=== PATIENT | female | born 1965 ===

== ENCOUNTER 2017-01-27 16:03 | Observation (INO) | payer OTHER ==
[2017-01-27] MEDS ORDERED: ALBUTEROL NEBULIZED 2.5 MG/3 ML INHALATION STA ×2 (16:07→18:12)
[2017-01-27] MEDS ORDERED: MAGNESIUM SULFATE-D5W PMX 1 GM in DEXTROSE/WATER 1 100ML.BAG IVPB STA (16:07)
[2017-01-27] MEDS ORDERED: DEXAMETHASONE SOD PHOSPHATE 10 MG/ML 1 ML VIAL IV STA (16:07)
[2017-01-27 17:23] LABS: Basophils % (A) 1 %; CH 28.7; CHCM 33.4; Eosinophils # (A) 0.2 k/uL (0-0.7); Eosinophils % (A) 3 %; HCT 39.1 % (34.0-46.0); HDW 2.34; HGB 13.1 gm/dL (11.4-16.0); Luc # (Auto) 0.12; Luc % (Auto) 2; Lymphocytes # (A) 2.1 k/uL (1.0-4.8); Lymphocytes % (A) 33 %; MCH 28.9 pg (25.0-35.0); MCHC 33.4 g/dL (31.0-37.0); MCV 86.3 fL (80.0-100.0); Mean Platelet Volume 7.4; Monocytes # (A) 0.5 k/uL (0-1.0); Monocytes % (A) 7 %; Neutrophils # (A) 3.5 k/uL (1.3-7.7); Neutrophils % (A) 54 %; RBC 4.54 m/uL (3.80-5.40); RDW 13.7 % (11.5-15.5); WBC 6.5 k/uL (3.8-10.6); WBC (Perox) 6.38
[2017-01-27 17:35] LABS: ALT 43 U/L (9-52); AST 21 U/L (14-36); Alkaline Phosphatase 93 U/L (38-126); Anion Gap 10 mmol/L; Blood Urea Nitrogen 15 mg/dL (7-17); Calcium 9.4 mg/dL (8.4-10.2); Carbon Dioxide 25 mmol/L (22-30); Chloride 106 mmol/L (98-107); Glucose 97 mg/dL (74-99); Non-African American GFR(MDRD) >60 (>60 ml/min/1.73 sqM); Potassium 3.6 mmol/L (3.5-5.1); Sodium 141 mmol/L (137-145); Total Bilirubin 0.2 mg/dL (0.2-1.3); Total Protein 6.6 g/dL (6.3-8.2)
--- NOTE | 2017-01-27 18:01 | XR ---
Exam: FILM CXR 01/27/17 at 1748 hrs. Single frontal view chest INDICATION: Difficulty breathing COMPARISON: None FINDINGS: Low lung volumes are noted. Heart size appears enlarged.. Tortuosity of the descending aorta noted. Prominence of the right hilum may be related to crowding of the pulmonary vessels. Possibility of enlarged right hilar nodes are not excluded entirely. No focal consolidation in the lungs. No effusion or pneumothorax. Elevated right hemidiaphragm noted. There is tortuosity of the descending aorta. Bony elements are within normal limits for age. No acute osseous abnormality. IMPRESSION: Low lung volumes. No focal consolidation in the lungs. No pneumothorax or effusion. Cardiac size appears enlarged which may be accentuated due to low lung volume status. No evidence for congestive heart failure. Some prominence of the right ángel may also be related to crowding of the pulmonary vessels due to low lung volumes however possibility of a prominent right infrahilar nodes is not entirely excluded. Tortuosity of the descending aorta. There is mild elevation of the right hemidiaphragm.
--- NOTE | 2017-01-27 19:19 | ED ---
General Adult HPI - General Chief complaint: Shortness of Breath Stated complaint: KEELEY Time Seen by Provider: 01/27/17 16:07 Source: patient, family, RN notes reviewed Mode of arrival: EMS Limitations: physical limitation - History of Present Illness Initial comments: 51-year-old female presenting with two-day history of dysuria. Patient was sent from her primary care's addition by ambulance for significant respiratory distress. Patient has known history of asthma. She's been taking her albuterol at home without relief. She complains of cough which is nonproductive. Denies fever. Denies chest pain. History is somewhat limited secondary to language barrier. Denies nausea vomiting or diarrhea. - Related Data Home Medications Medication Instructions Recorded Confirmed Albuterol Inhaler [Ventolin Hfa 2 puff INHALATION RT-Q4H PRN 01/27/17 01/27/17 Inhaler] Beclomethasone Dipropionate [Qvar 1 puff INHALATION RT-BID 01/27/17 01/27/17 80 mcg] Allergies Allergy/AdvReac Type Severity Reaction Status Date / Time hydromorphone Allergy Rash/Hives Verified 01/27/17 17:45 NSAIDS (Non-Steroidal Allergy Rash/Hives Verified 01/27/17 17:44 Anti-Inflamma Review of Systems ROS Statement: Those systems with pertinent positive or pertinent negative responses have been documented in the HPI. ROS Other: All systems not noted in ROS Statement are negative. Past Medical History Past Medical History: Asthma Additional Past Medical History / Comment(s): henia, prolapsed uterus, kidney stones History of Any Multi-Drug Resistant Organisms: None Reported Past Surgical History: Cholecystectomy Additional Past Surgical History / Comment(s): kidney stone removal Past Psychological History: No Psychological Hx Reported Smoking Status: Never smoker Past Alcohol Use History: None Reported Past Drug Use History: None Reported General Exam Limitations: physical limitation General appearance: alert Head exam: Present: atraumatic, normocephalic Eye exam: Present: normal appearance, PERRL ENT exam: Present: mucous membranes moist Respiratory exam: Present: wheezes, accessory muscle use, decreased breath sounds Cardiovascular Exam: Present: regular rate, normal rhythm GI/Abdominal exam: Present: soft. Absent: distended, tenderness Extremities exam: Present: pedal edema. Absent: calf tenderness Neurological exam: Present: alert, oriented X3. Absent: motor sensory deficit Psychiatric exam: Present: normal affect, normal mood Skin exam: Present: warm, dry. Absent: cyanosis, diaphoretic Course Vital Signs 01/27/17 01/27/17 01/27/17 16:08 17:16 18:16 Pulse Rate 83 92 Respiratory 26 H Rate Blood Pressure 138/97 O2 Sat by Pulse 97 99 Oximetry 01/27/17 18:32 Pulse Rate 91 Respiratory Rate Blood Pressure O2 Sat by Pulse Oximetry - Reevaluation(s) Reevaluation #1: 01/27/17 19:16 Patient is given steroids, albuterol, Atrovent, and magnesium sulfate. On reevaluation she is feeling better. Still is in moderate respiratory distress. EKG Findings - EKG Comments: EKG Findings:: EKG shows normal sinus rhythm with a ventricular rate of 81, WI interval 162, QRS duration 90, QTC is 455, there is no ST segment elevation or depression, no T-wave abnormalities. Medical Decision Making - Medical Decision Making 51-year-old female with past medical history of asthma presenting with cough and difficult to breathing. Patient is in moderate respiratory distress, tachypnea, minimal air entry with an extremely wheeze using accessory muscles. She was given 5 mg of albuterol and 1 mg of Atrovent prior to arrival. She is given additional 5 mg of albuterol, Decadron, magnesium sulfate in the emergency department. Reevaluation she appears more comfortable but is still in moderate respiratory distress. Chest x-ray shows no defined is, no infiltrate, no pneumothorax, no pulmonary edema. EKG is unremarkable. Patient will be admitted for continued steroids, and nebulized albuterol. Case was discussed with the patient's primary care physician who would like pulmonology to be consulted. - Lab Data Result diagrams: 01/27/17 17:13 01/27/17 17:13 Lab Results 01/27/17 01/27/17 01/27/17 Range/Units 17:13 17:13 17:13 WBC 6.5 (3.8-10.6) k/uL RBC 4.54 (3.80-5.40) m/uL Hgb 13.1 (11.4-16.0) gm/dL Hct 39.1 (34.0-46.0) % MCV 86.3 (80.0-100.0) fL MCH 28.9 (25.0-35.0) pg MCHC 33.4 (31.0-37.0) g/dL RDW 13.7 (11.5-15.5) % Plt Count 305 (150-450) k/uL Neutrophils % 54 % Lymphocytes % 33 % Monocytes % 7 % Eosinophils % 3 % Basophils % 1 % Neutrophils # 3.5 (1.3-7.7) k/uL Lymphocytes # 2.1 (1.0-4.8) k/uL Monocytes # 0.5 (0-1.0) k/uL Eosinophils # 0.2 (0-0.7) k/uL Basophils # 0.0 (0-0.2) k/uL D-Dimer 0.31 (<0.60) mg/L FEU Sodium 141 (137-145) mmol/L Potassium 3.6 (3.5-5.1) mmol/L Chloride 106 (98-107) mmol/L Carbon Dioxide 25 (22-30) mmol/L Anion Gap 10 mmol/L BUN 15 (7-17) mg/dL Creatinine 0.70 (0.52-1.04) mg/dL Est GFR (MDRD) Af Amer >60 (>60 ml/min/1.73 sqM) Est GFR (MDRD) Non-Af >60 (>60 ml/min/1.73 sqM) Glucose 97 (74-99) mg/dL Calcium 9.4 (8.4-10.2) mg/dL Total Bilirubin 0.2 (0.2-1.3) mg/dL AST 21 (14-36) U/L ALT 43 (9-52) U/L Alkaline Phosphatase 93 (38-126) U/L Total Protein 6.6 (6.3-8.2) g/dL Albumin 4.0 (3.5-5.0) g/dL Disposition Clinical Impression: Asthma with status asthmaticus Disposition: ADMITTED IP TO THIS [facility] Condition: Stable Referrals: Bruce Wilhelm MD [Primary Care Provider] - 1-2 days Decision to Admit Reason: Admit from EC Decision Date: 01/27/17 Decision Time: 19:18
[2017-01-27] MEDS: ACETAMINOPHEN TAB 325 MG TAB PO PRN (23:36)
[2017-01-28] MEDS: IPRATROPIUM-ALBUTEROL 3 ML NEB INHALATION PRN ×3 (00:06→11:24)
[2017-01-28] MEDS: ACETAMINOPHEN TAB 325 MG TAB PO PRN (06:08)
[2017-01-28] MEDS ORDERED: predniSONE 20 MG TAB PO SCH (09:00)
[2017-01-28] MEDS: methylPREDNISolone SOD SUCCI 125 MG/2 ML VIAL IV SCH ×3 (12:00→23:57)
[2017-01-28] MEDS ORDERED: Potassium Replacement Protocol 1 EACH MISC MISCELLANE PRN (13:00)
--- NOTE | 2017-01-28 13:48 | P.HPIM ---
History of Present Illness H&P Date: 01/28/17 Chief Complaint: Shortness of breath This is a 51-year-old female with past medical history significant for asthma or childhood that was sent from my office yesterday to the emergency room for further evaluation of acute asthma exacerbation. Patient has been having problems with difficulty breathing and wheezing for the past couple of weeks. Her problem got significantly worse within the past 2 days. When she presented to my office yesterday she was having audible wheezing across a room. She was having cough that is generally nonproductive and occasionally productive of yellowish sputum. She was sent to the emergency room where she was evaluated and treated with bronchodilators and IV steroids. Chest x-ray showed no acute findings. Patient is currently admitted to the hospital. She is also complaining of abdominal pain in the area of the chronic ventral hernia. Review of Systems Review of system: 14 points review of systems were obtained and were negative except to what were mentioned in the HPI. Past Medical History Past Medical History: Asthma Additional Past Medical History / Comment(s): hernia, prolapsed uterus, kidney stones History of Any Multi-Drug Resistant Organisms: None Reported Past Surgical History: Cholecystectomy Additional Past Surgical History / Comment(s): kidney stone removal Past Anesthesia/Blood Transfusion Reactions: Motion Sickness, Postoperative Nausea & Vomiting (PONV) Past Psychological History: No Psychological Hx Reported Smoking Status: Never smoker Past Alcohol Use History: None Reported Past Drug Use History: None Reported - Past Family History Mother Family Medical History: Asthma, Diabetes Mellitus Father Family Medical History: No Reported History, Unable to Obtain Medications and Allergies Home Medications Medication Instructions Recorded Confirmed Type Albuterol Inhaler [Ventolin Hfa 2 puff INHALATION RT-Q4H PRN 01/27/17 01/27/17 History Inhaler] Beclomethasone Dipropionate [Qvar 1 puff INHALATION RT-BID 01/27/17 01/27/17 History 80 mcg] Allergies Allergy/AdvReac Type Severity Reaction Status Date / Time hydromorphone Allergy Rash/Hives Verified 01/27/17 17:45 NSAIDS (Non-Steroidal Allergy Rash/Hives Verified 01/27/17 17:44 Anti-Inflamma Physical Exam Vitals: Vital Signs Temp Pulse Pulse Resp BP BP Pulse Ox 01/28/17 11:35 92 01/28/17 11:25 98 01/28/17 07:10 96 07/11/17 07:00 96.7 F L 94 18 134/85 96 01/28/17 06:57 100 97 01/28/17 00:17 94 01/28/17 00:06 100 01/27/17 23:00 97.5 F L 109 H 16 126/79 96 01/27/17 20:25 97.0 F L 99 16 139/74 93 L 01/27/17 20:22 98.0 F 87 15 164/93 96 01/27/17 19:00 88 20 132/78 99 01/27/17 18:32 91 01/27/17 18:16 92 01/27/17 18:00 85 20 158/70 96 01/27/17 17:16 99 01/27/17 16:08 83 26 H 138/97 97 Intake and Output 01/27/17 01/28/17 01/28/17 22:59 06:59 14:59 Output Total 313 700 Balance -313 -700 Output: Urine 700 Post Void Residual 313 Other: Voiding Method Toilet Toilet Bedside Commode Bedside Commode Bedpan Bedpan # Voids 2 Weight 90.718 kg General: The patient is awake and alert, in no distress Eye: there is normal conjunctiva bilaterally. Neck: The neck is supple, there is no JVD. Cardiovascular: Normal S1-S2, no S3-S4, no murmurs. Respiratory: Lungs are diminished bilaterally with mild end expiratory wheezing Gastrointestinal: Abdomen is soft, nontender. There is a small ventral hernia in the umbilical area that is reducible but slightly tender to palpation. Musculoskeletal: There is no pedal edema. Neurological:. Speech is normal. Skin: Skin is warm and dry Results CBC & Chem 7: 01/27/17 17:13 01/27/17 17:13 Thrombosis Risk Factor Assmnt - Choose All That Apply Each Factor Represents 1 point: Age 41-60 years, Obesity (BMI >25) Thrombosis Risk Factor Assessment Total Risk Factor Score: 2 Thrombosis Risk Factor Assessment Level: Low Risk Assessment and Plan Plan: 1. Acute asthma exacerbation 2. Acute bacterial bronchitis with no evidence of pneumonia on chest x-ray 3. Reducible chronic ventral hernia causing some pain 4. Chronic uterine prolapse 5. DVT prophylaxis with subcu heparin Today, I reviewed her medication to send lab work resolved. Continue bronchodilators around the clock. Continue IV steroids. Inhaled steroids and oral azithromycin added by pulmonology, appreciate recommendations. Wean off O2 as tolerated for O2 sats above 90%. Continue supportive care otherwise. Awaiting general surgery evaluation. Repeat lab work in the morning.
[2017-01-28] MEDS: IPRATROPIUM-ALBUTEROL 3 ML NEB INHALATION SCH ×3 (15:36→23:42)
[2017-01-28] MEDS ORDERED: ZOLPIDEM 5 MG TAB PO PRN (16:14)
--- NOTE | 2017-01-28 16:40 | CONS ---
51 year old female with history of asthma. She presents with a couple of days of increasing shortness of breath, coughing, wheezing, chest congestion. Not a particularly good historian. The patient has history of longstanding asthma that has been present for at least five to ten years. Apparently it is worse than it has ever been. She did not see a lung doctor. She denies any fever. No chest pain. Not coughing up much or any phlegm. She does have significant language barrier. No nausea, vomiting or diarrhea. She was admitted with a diagnosis of asthma exacerbation. She has a prior history of pneumonia in the past. Home medications include: 1. Albuterol inhaler. 2. Q-Torito inhaler. ALLERGIES: HYDROMORPHONE. SHE ALSO HAS ALLERGIES TO ANTIINFLAMMATORY DRUG SUCH NONSTEROIDAL ANTIINFLAMMATORY DRUGS. Past medical history includes asthma. She also has a history of abdominal hernia as well as a prolapsed uterus. She has a history of kidney stones and previous episode of pneumonia. In addition to ( ) she has had a previous cholecystectomy. Social history is negative for tobacco or alcohol use. No illicit drug use. Family history is positive for a niece with asthma. We actually see the niece in our office. She also has severe asthma. The rest of the history is not too remarkable. REVIEW OF SYSTEMS: Constitutional: Negative. Neurological negative. HEENT: Negative. Cardiovascular negative. Cardiopulmonary: Shortness of breath, chest tightness. Cough and chest congestion. Minimal phlegm production. GI/ negative. Hematological, rheumatology, endocrinological and dermatologic all negative. Current vital signs include temperature 96.7, heart rate 94, respiratory rate 18. Blood pressure 134/85. Mean 101. Room air saturation 96%. Appears in no acute distress. HEENT: Grossly unremarkable. Mucous membranes are moist. No oral lesions. Neck is supple. Full range of motion. No adenopathy or thyromegaly. Neck veins are flat. Cardiovascular reveals regular rhythm and rate. S1, S1 normal. Lungs revealed diminished breath sounds. Some high pitched expiratory wheezing. She is not moving a lot of air. There is prolongation on forced maneuver. Cough makes it sound like she has some tracheomalacia. No crackles. Abdomen soft. Bowel sounds are heard. No masses or tenderness. Extremities are intact. No cyanosis, clubbing or edema. Skin is without rash. Neurological examination is brief but nonfocal. Chest x-ray shows no acute infiltrate. Labs are reviewed. CBC, comprehensive metabolic profile and D. dimer are all completely normal. Medications are reviewed. She is on Tylenol, albuterol, DuoNeb, Prednisone. We will also get her on some Perforomist and Pulmicort. We will switch her Prednisone back to Solu-Medrol. We will also give her an oral antibiotic. ASSESSMENT: Asthma exacerbation complicated by purulent tracheobronchitis in a patient with severe asthma. PLAN: Please see my orders. The patient will be given Solu-Medrol 60 q6. We will add back Pulmicort 1 mg and Perforomist twice a day. She is already on DuoNeb. We will give her an oral antibiotic. She has no allergies to antibiotics. Additional recommendations and suggestions are forthcoming. Prognosis is guarded. MTDD
--- NOTE | 2017-01-28 19:10 | P.GSCN ---
History of Present Illness Consult date: 01/28/17 Reason for Consult: Umbilical hernia History of present illness: Patient seen today in consultation for umbilical hernia. The patient actually was admitted with shortness of breath and wheezing. Exacerbation of asthma was suspected. While hospitalized the patient has complaints of a hernia at the umbilicus. She does have a surgery history of cholecystectomy. She also has complaints of a prolapsed uterus. Describes mild discomfort at the hernia site. It has always been soft in nature. No skin changes. Review of Systems The patient denies any acute changes in vision or hearing, no dysphagia or odynophagia, no chest pain, no dysuria or hematuria, no headache, no runny nose , no rectal bleeding or melena, no unexplained weight loss Past Medical History Past Medical History: Asthma Additional Past Medical History / Comment(s): hernia, prolapsed uterus, kidney stones History of Any Multi-Drug Resistant Organisms: None Reported Past Surgical History: Cholecystectomy Additional Past Surgical History / Comment(s): kidney stone removal Past Anesthesia/Blood Transfusion Reactions: Motion Sickness, Postoperative Nausea & Vomiting (PONV) Past Psychological History: No Psychological Hx Reported Smoking Status: Never smoker Past Alcohol Use History: None Reported Past Drug Use History: None Reported - Past Family History Mother Family Medical History: Asthma, Diabetes Mellitus Father Family Medical History: No Reported History, Unable to Obtain Medications and Allergies Home Medications Medication Instructions Recorded Confirmed Type Albuterol Inhaler [Ventolin Hfa 2 puff INHALATION RT-Q4H PRN 01/27/17 01/27/17 History Inhaler] Beclomethasone Dipropionate [Qvar 1 puff INHALATION RT-BID 01/27/17 01/27/17 History 80 mcg] Allergies Allergy/AdvReac Type Severity Reaction Status Date / Time hydromorphone Allergy Rash/Hives Verified 01/27/17 17:45 NSAIDS (Non-Steroidal Allergy Rash/Hives Verified 01/27/17 17:44 Anti-Inflamma Surgical - Exam Vital Signs Pulse Resp BP Pulse Ox 83 26 H 138/97 97 01/27/17 16:08 01/27/17 16:08 01/27/17 16:08 01/27/17 16:08 Physical exam: General: Well-developed, well-nourished HEENT: Normocephalic, sclerae nonicteric Abdomen: Nontender, nondistended, reducible small moderate size hernia at the umbilicus Extremities: No edema Neuro: Alert and oriented Results - Labs 01/27/17 17:13 01/27/17 17:13 Assessment and Plan (1) Umbilical hernia Narrative/Plan: Clinically the hernia nonincarcerated. This does warrant surgical repair because of the symptoms of pain. Patient may be discharged to follow-up in the office to discuss this further. Status: Acute
[2017-01-28] MEDS: FORMOTEROL FUMARATE 20 MCG/2 ML NEBU INHALATION SCH (21:09)
[2017-01-28] MEDS: BUDESONIDE 1 MG/2 ML NEBU INHALATION SCH (21:10)
[2017-01-28] MEDS: HEPARIN SODIUM,PORCINE 5,000 UNIT/ML 1 ML VIAL SQ SCH (21:47)
[2017-01-28 23:14] VITALS: RESP 18
[2017-01-29] MEDS: ACETAMINOPHEN TAB 325 MG TAB PO PRN ×3 (00:38→10:50)
[2017-01-29] MEDS: IPRATROPIUM-ALBUTEROL 3 ML NEB INHALATION SCH ×3 (03:30→12:54)
[2017-01-29] MEDS: methylPREDNISolone SOD SUCCI 125 MG/2 ML VIAL IV SCH ×2 (06:45→12:00)
[2017-01-29] MEDS: HEPARIN SODIUM,PORCINE 5,000 UNIT/ML 1 ML VIAL SQ SCH (07:49)
[2017-01-29 07:53] VITALS: BP 124/88; PULSE 100; TEMP 97.6
[2017-01-29] MEDS: BUDESONIDE 1 MG/2 ML NEBU INHALATION SCH (08:41)
[2017-01-29] MEDS: FORMOTEROL FUMARATE 20 MCG/2 ML NEBU INHALATION SCH (08:41)
[2017-01-29 09:00] LABS: ALT 25 U/L (9-52); AST 18 U/L (14-36); Alkaline Phosphatase 87 U/L (38-126); Anion Gap 14 mmol/L; Blood Urea Nitrogen 14 mg/dL (7-17); Calcium 9.9 mg/dL (8.4-10.2); Carbon Dioxide 22 mmol/L (22-30); Chloride 105 mmol/L (98-107); Glucose 187 mg/dL (74-99); Non-African American GFR(MDRD) >60 (>60 ml/min/1.73 sqM); Potassium 4.9 mmol/L (3.5-5.1); Sodium 141 mmol/L (137-145); Total Bilirubin 0.5 mg/dL (0.2-1.3); Total Protein 7.7 g/dL (6.3-8.2)
[2017-01-29] MEDS ORDERED: AZITHROMYCIN 500 MG TAB PO SCH (09:00)
--- NOTE | 2017-01-29 10:57 | P.PN ---
Subjective Progress note dated 01/29/2017 51-year-old female who I saw for the first time yesterday. She has a history of chronic bronchial asthma. Her he came with asthma exacerbation. Was very very short of breath yesterday. Coughing wheezing chest congestion. The patient does look better today and feels better today. I did have a chance to talk to her and I also talked to her sister. The patient's niece, is a patient our practice emergency many times. She also severe asthma. Less short of breath. Certainly not to baseline. I would suspect that it probably before Friday that she can be discharged. Objective - Vital Signs Vital signs: Vital Signs Temp 97.6 F 01/29/17 07:00 Pulse 100 01/29/17 08:46 Resp 18 01/29/17 07:00 BP 124/88 01/29/17 07:00 Pulse Ox 96 01/29/17 07:00 Intake & Output 01/28/17 01/29/17 01/29/17 18:59 06:59 18:59 Intake Total 480 Balance 480 Intake: Oral 480 Other: Voiding Method Toilet Toilet Toilet Bedside Commode Bedside Commode Bedpan Bedpan # Voids 3 1 # Bowel Movements 0 - Exam No acute distress, oriented 3. HEENT examination is grossly unremarkable. Mucous membranes are moist. No oral lesions. Neck supple full range of motion. No adenopathy or thyromegaly. Neck veins are flat. Cardiovascular examination reveals regular rhythm rate. She is mildly tachycardic. His regular. Heart rate about 110. No murmur. No S3-S4. S1 and S2 appear normal. Lungs reveal some mild coarse rhonchi. This some expiratory wheezing bilaterally. No crackles. Breath sounds are equal bilaterally. Abdomen soft bowel sounds are heard. Extremities are intact. No cyanosis clubbing or edema. Skin without rash. Neurologic examination is nonfocal. - Labs CBC & Chem 7: 01/27/17 17:13 01/29/17 07:57 Labs: Abnormal Lab Results - Last 24 Hours (Table) 01/29/17 Range/Units 07:57 Glucose 187 H (74-99) mg/dL Assessment and Plan (1) Asthma with status asthmaticus Status: Acute Plan: Plan The patient will continue on the current medications which include albuterol and Atrovent updrafts 4 times a day and when necessary Pulmicort 1 mg and performance twice a day and Solu-Medrol Medrol 60 mg every 6. We also added an oral antibiotic yesterday. I did talk to her sister today. Her niece is also in our practice. She sees Dr. Campbell. We'll continue to follow closely. Prognosis is guarded. Time with Patient: Greater than 30
--- NOTE | 2017-01-29 11:24 | P.PN ---
Subjective Principal diagnosis: Umbilical hernia Patient with a variety of different complaints. These however do include some discomfort at the umbilical hernia site. Mainly when she is bending over she feels a bulge there. Objective - Vital Signs Vital signs: Vital Signs Temp 97.6 F 01/29/17 07:00 Pulse 100 01/29/17 08:46 Resp 18 01/29/17 07:00 BP 124/88 01/29/17 07:00 Pulse Ox 96 01/29/17 07:00 Intake & Output 01/28/17 01/29/17 01/29/17 18:59 06:59 18:59 Intake Total 480 Balance 480 Intake: Oral 480 Other: Voiding Method Toilet Toilet Toilet Bedside Commode Bedside Commode Bedpan Bedpan # Voids 3 1 # Bowel Movements 0 - Exam Abdomen: Soft, nontender, nondistended reducible umbilical hernia - Labs CBC & Chem 7: 01/27/17 17:13 01/29/17 07:57 Labs: Abnormal Lab Results - Last 24 Hours (Table) 01/29/17 Range/Units 07:57 Glucose 187 H (74-99) mg/dL Assessment and Plan (1) Umbilical hernia Narrative/Plan: Continue optimization of pulmonary status. We'll sign off at this point. Please follow-up as an outpatient for elective repair. Status: Acute
--- NOTE | 2017-01-29 13:01 | P.DS ---
Providers Date of admission: 01/27/17 19:11 Expected date of discharge: 01/29/17 Attending physician: Bruce Wilhelm Consults: 01/27/17 19:11 Consult Physician Routine Consulting Provider: Tim Campbell Consult Reason/Comments: Asthma exacerbation Do you want consulting provider notified?: Yes, Notify in am 01/27/17 22:29 Consult Physician Routine Consulting Provider: Han Lang Consult Reason/Comments: Umbilical hernia Do you want consulting provider notified?: Yes Primary care physician: [facility] Course: This is a 51-year-old female who presented to the hospital with worsening shortness of breath and cough and was found to have acute asthma exacerbation with evidence of bacterial bronchitis. Chest x-ray showed no evidence of pneumonia. Patient was admitted to the hospital and was treated with IV steroids and bronchodilator. His overall condition improved significantly throughout her hospital stay. On the day of discharge her lungs were clear bilaterally. She was having oxygen saturation above 90% on room air. She was up ambulating with no difficulty. She'll be discharged home in a stable condition. Below is a list of her medical problems addressed during this hospitalization. 1. Acute asthma exacerbation 2. Acute bacterial bronchitis with no evidence of pneumonia on chest x-ray 3. Reducible chronic ventral hernia causing some pain 4. Chronic uterine prolapse Patient Condition at Discharge: Stable Plan - Discharge Summary New Discharge Prescriptions: New Albuterol Nebulized [Ventolin Nebulized] 2.5 mg INHALATION Q6H PRN #30 nebu PRN Reason: Shortness Of Breath Azithromycin [Zithromax] 500 mg PO DAILY #5 tab predniSONE 40 mg PO DAILY #10 tab Continue Albuterol Inhaler [Ventolin Hfa Inhaler] 2 puff INHALATION RT-Q4H PRN PRN Reason: Shortness Of Breath Beclomethasone Dipropionate [Qvar 80 mcg] 1 puff INHALATION RT-BID Discharge Medication List Albuterol Inhaler [Ventolin Hfa Inhaler] 2 puff INHALATION RT-Q4H PRN 01/27/17 [ History] Beclomethasone Dipropionate [Qvar 80 mcg] 1 puff INHALATION RT-BID 01/27/17 [ History] Albuterol Nebulized [Ventolin Nebulized] 2.5 mg INHALATION Q6H PRN #30 nebu 07/06 [Rx] Azithromycin [Zithromax] 500 mg PO DAILY #5 tab 01/29/17 [Rx] predniSONE 40 mg PO DAILY #10 tab 01/29/17 [Rx] Follow up Appointment(s)/Referral(s): Han Lang MD [Medical Doctor] - 4 Weeks Bruce Wilhelm MD [Primary Care Provider] - 1 Week Patient Instructions/Handouts: Asthma (DC), Umbilical Hernia (DC) Activity/Diet/Wound Care/Special Instructions: Regular diet. Discharge Disposition: HOME SELF-CARE
== END 2017-01-29 14:43 | disposition home or self-care (01) ==
LOC: EC 16:03 → 4MS4W 19:11
PROVIDERS: ADMIT Internal Medicine; ATTEND Internal Medicine
DX: J45.902 Unspecified asthma with status asthmaticus (principal); J20.9 Acute bronchitis, unspecified; K43.9 Ventral hernia without obstruction or gangrene; Z87.01 Personal history of pneumonia (recurrent); Z79.51 Long term (current) use of inhaled steroids; Z88.5 Allergy status to narcotic agent; Z88.8 Allergy status to other drugs, medicaments and biological substances; N81.4 Uterovaginal prolapse, unspecified; Z90.49 Acquired absence of other specified parts of digestive tract
CPT/HCPCS: 96365 ×2; 96375 ×3; 99285; 96376 ×2; 96372 ×2; 51798; 36415; 94640 ×5; 94760; 93005; 85379; 80053 ×2; 85025; 71010; G0378 ×3; J1644 ×2; J1100; J2930 ×2; J3475; J7512

== ENCOUNTER → 2018-02-25 | Outpatient (CLI) | payer OTHER ==
--- NOTE | 2018-02-26 11:04 | MM ---
Reason for exam: follow-up at short interval from prior study. Last mammogram was performed 1 month ago. Physical Findings: Nurse did not find any significant physical abnormalities on exam. MG 3D Diag Mammo W/Cad LT Spot compression CC, MLO, LM, and CC view(s) were taken of the left breast. Prior study comparison: January 30, 2018, mammogram, performed at [facility]. The breast tissue is heterogeneously dense. This may lower the sensitivity of mammography. The questioned 12 o'clock distortion disperses on spot 3D views. Precautionary ultrasound recommended. These results were verbally communicated with the patient and result sheet given to the patient on 02/25/18. ASSESSMENT: Incomplete: need additional imaging evaluation, BI-RAD 0 RECOMMENDATION: Ultrasound of both breasts. Left 11-1 o'clock targeted Right whole breast for pain
--- NOTE | 2018-02-26 11:08 | USB ---
Reason for exam: additional evaluation requested from abnormal screening. US Breast Limited BILAT Right complete breast ultrasound includes all four quadrants, the retroareolar region and axilla. Finding demonstrates a 0.7 x 0.7 x 0.5cm oval, circumscribed, hypoechoic lesion at 10 o'clock, possible complicated cyst or small solid lesion, 6 month follow up recommended, a 0.4 x 0.6 x 0.4cm oval, circumscribed, hypoechoic lesion at 11 o'clock, similar to the 10 o'clock area, 6 month follow up recommended and a 1.1 x 0.5 x 0.5cm oval, hyperechoic lesion at 11 o'clock, questionable lipoma, 6 month follow up recommended. Left limited breast ultrasound including focal area of concern, retroareolar and axilla demonstrates a 0.5 x 0.5 x 0.3cm oval, cystic, benign lesion at 12 o'clock, benign duct ectasia at 2 o'clock and at the posterior nipple. Left breast scanned 11-3 o'clock. These results were verbally communicated with the patient and result sheet given to the patient on 02/25/18. ASSESSMENT: Probably benign, BI-RAD 3 RECOMMENDATION: Ultrasound of the right breast in 6 months. Manage on a clinical basis with regard to right breast pain.
== END | disposition home or self-care (01) ==
LOC: RADMAMWWP 09:49
PROVIDERS: ATTEND Family Medicine
DX: N64.4 Mastodynia (principal); R92.8 Other abnormal and inconclusive findings on diagnostic imaging of breast
CPT/HCPCS: 77065; 76642; G0279; 77061

== ENCOUNTER → 2018-06-09 | Outpatient (CLI) | payer OTHER ==
--- NOTE | 2018-06-09 11:47 | XR ---
EXAMINATION TYPE: XR chest 2V DATE OF EXAM: 06/09/2018 COMPARISON: Chest x-ray January 27, 2017 HISTORY: History of asthma, presurgical study. TECHNIQUE: Frontal and lateral views of the chest are obtained. FINDINGS: Improved inspiration noted on current study. There is no focal air space opacity, pleural e ffusion, or pneumothorax seen. The cardiac silhouette size remains enlarged with atherosclerotic and slightly ectatic thoracic aorta. The osseous structures are intact. Cholecystectomy clips are rede monstrated. IMPRESSION: Cardiomegaly without acute pulmonary process.
[2018-06-09 12:02] LABS: Basophils % (A) 1 %; Eosinophils # (A) 0.1 k/uL (0-0.7); Eosinophils % (A) 2 %; HCT 41.5 % (34.0-46.0); HGB 13.4 gm/dL (11.4-16.0); Lymphocytes # (A) 1.4 k/uL (1.0-4.8); Lymphocytes % (A) 27 %; MCH 28.5 pg (25.0-35.0); MCHC 32.3 g/dL (31.0-37.0); MCV 88.5 fL (80.0-100.0); Mean Platelet Volume 7.2; Monocytes # (A) 0.3 k/uL (0-1.0); Monocytes % (A) 6 %; Neutrophils # (A) 3.2 k/uL (1.3-7.7); Neutrophils % (A) 62 %; Platelet Count 293 k/uL (150-450); RBC 4.69 m/uL (3.80-5.40); RDW 13.6 % (11.5-15.5); WBC 5.1 k/uL (3.8-10.6)
[2018-06-09 12:08] LABS: Partial Thromboplastin Time 23.4 sec (22.0-30.0); Prothrombin Time 9.8 sec (9.0-12.0)
[2018-06-09 12:17] LABS: ALT 43 U/L (9-52); AST 24 U/L (14-36); Albumin/Globulin Ratio 1.3; Alkaline Phosphatase 79 U/L (38-126); Anion Gap 4 mmol/L; Blood Urea Nitrogen 20 mg/dL (7-17); Calcium 9.6 mg/dL (8.4-10.2); Carbon Dioxide 31 mmol/L (22-30); Chloride 107 mmol/L (98-107); Globulin 3.1 g/dL; Glucose 99 mg/dL (74-99); Potassium 4.9 mmol/L (3.5-5.1); Sodium 142 mmol/L (137-145); Total Bilirubin 0.4 mg/dL (0.2-1.3); Total Protein 7.1 g/dL (6.3-8.2)
== END | disposition home or self-care (01) ==
LOC: LABWHC1 11:00
PROVIDERS: ATTEND Family Medicine
DX: Z01.818 Encounter for other preprocedural examination (principal); N81.4 Uterovaginal prolapse, unspecified; I51.7 Cardiomegaly; Z01.812 Encounter for preprocedural laboratory examination
CPT/HCPCS: 36415; 71046; 80053; 85025; 85610; 85730

== ENCOUNTER → 2019-02-23 | Outpatient (CLI) | payer OTHER ==
--- NOTE | 2019-02-23 18:46 | US ---
EXAMINATION TYPE: US venous doppler duplex LE DATE OF EXAM: 02/23/2019 6:12 PM COMPARISON: NONE CLINICAL HISTORY: R22.43, I83.813. bilateral lower leg and ankle swelling x 2 months; pain medial lef t knee and superficial "spider veins". SIDE PERFORMED: Bilateral TECHNIQUE: The lower extremity deep venous system is examined utilizing real time linear array sonog maria teresa with graded compression, doppler sonography and color-flow sonography. VESSELS IMAGED: Common Femoral Vein Deep Femoral Vein Greater Saphenous Vein * Femoral Vein Popliteal Vein Small Saphenous Vein * Proximal Calf Veins (* superficial vessels) FINDINGS: Grayscale, color doppler, spectral doppler imaging performed of the deep veins of the lower extremities. There is normal flow, compressibility, vascular waveforms. On the left, the plating operator reported a tortuous superficial, compressible vein noted medial to left knee, at the site of the patient's pain. IMPRESSION: Negative for DVT, bilateral lower extremities.
== END | disposition home or self-care (01) ==
LOC: RADUSWWP 17:36
PROVIDERS: ATTEND Family Medicine
DX: I83.813 Varicose veins of bilateral lower extremities with pain (principal)
CPT/HCPCS: 93970